=== PATIENT | female | born 1970 | race Caucasian/White ===

== ENCOUNTER 2020-12-08 20:30 | Inpatient (IN) | payer MEDICAID ==
[~2020-12-08] VITALS: Ht 162.6 cm; Wt 63.3 kg
[2020-12-09] MEDS ORDERED: HALOPERIDOL 5 MG TABLET PO PRN (01:15)
[2020-12-09 03:00] VITALS: BP 108/74
[2020-12-09] MEDS: ZOLPIDEM TARTRATE 10 MG TABLET PO PRN ×2 (03:00→20:00)
[2020-12-09] MEDS ORDERED: CloNIDine HCL 0.1 MG TABLET PO PRN (07:45)
[2020-12-09] MEDS ORDERED: LOPERAMIDE HCL 2 MG CAPSULE PO PRN (07:45)
[2020-12-09] MEDS ORDERED: MAG HYDROX/AL HYDROX/SIMETH ES 30 ML SUSPENSION UDCUP PO PRN (07:45)
[2020-12-09] MEDS ORDERED: ACETAMINOPHEN 325 MG TABLET PO PRN (07:45)
[2020-12-09] MEDS ORDERED: NICOTINE 14 MG/24 HOUR PATCH TD PRN (07:45)
[2020-12-09] MEDS ORDERED: IBUPROFEN 400 MG TABLET PO PRN (07:45)
[2020-12-09] MEDS ORDERED: DOCUSATE SODIUM 100 MG CAPSULE PO PRN (07:45)
[2020-12-09] MEDS ORDERED: ALBUTEROL SULFATE HFA 90 MCG/PUFF 8 GM INHALER IH PRN (07:45)
[2020-12-09] MEDS ORDERED: GuaiFENesin/D-METHORPHAN [SUGAR-FREE] 200-20MG/10 ML SYRUP UDCUP PO PRN (07:45)
[2020-12-09] MEDS ORDERED: PETROLATUM,WHITE 28 GM JELLY TP PRN (07:45)
[2020-12-09] MEDS ORDERED: ONDANSETRON HCL 4 MG TABLET PO PRN (07:45)
[2020-12-09] MEDS ORDERED: MAGNESIUM HYDROXIDE SUSPENSION 30 ML UDCUP PO PRN (07:45)
[2020-12-09 08:15] VITALS: BP 100/61
[2020-12-09] MEDS: LORazepam 1 MG TABLET PO PRN (10:52)
[2020-12-09] MEDS: BuPROPion HCL XL 150 MG ER TABLET PO SCH (11:35)
[2020-12-09 16:10] VITALS: BP 117/61
[2020-12-10 05:08] VITALS: BP 110/72
[2020-12-10 08:12] VITALS: BP 100/60
[2020-12-10] MEDS: BuPROPion HCL XL 150 MG ER TABLET PO SCH (08:39)
[2020-12-10] MEDS: MULTIVITAMINS WITH MINERALS, THERAPEUTIC TABLET PO SCH (08:51)
[2020-12-10 09:00] VITALS: BP 110/80
[2020-12-10] MEDS: LORazepam 1 MG TABLET PO PRN ×2 (10:18→20:42)
[2020-12-10 16:20] VITALS: BP 100/65
[2020-12-10] MEDS: ZOLPIDEM TARTRATE 10 MG TABLET PO PRN (20:42)
[2020-12-11 04:18] VITALS: BP 112/74
[2020-12-11] MEDS: BuPROPion HCL XL 150 MG ER TABLET PO SCH (08:05)
[2020-12-11] MEDS: MULTIVITAMINS WITH MINERALS, THERAPEUTIC TABLET PO SCH (08:05)
[2020-12-11 08:17] VITALS: BP 109/62
[2020-12-11 10:10] LABS: BASOPHILS % (AUTO) 0.7 % (0.0-2.0); EOSINOPHILS % (AUTO) 2.9 % (1.0-6.0); HEMATOCRIT 37.9 % (36-46); HEMOGLOBIN 12.6 g/dL (12.0-16.0); LYMPHOCYTES # (AUTO) 1.2 K/uL (1.0-4.8); LYMPHOCYTES % (AUTO) 18.2 % (22.0-44.0); MEAN CORPUSCULAR HEMOGLOBIN 30.3 pg (26.0-34.0); MEAN CORPUSCULAR HGB CONC 33.3 G/dL (31.0-37.0); MEAN CORPUSCULAR VOLUME 91 fL (80-100); MONOCYTES # (AUTO) 0.5 K/uL (0.1-1.0); NEUTROPHILS # (AUTO) 4.8 K/uL (1.8-7.7); NEUTROPHILS % (AUTO) 70.2 % (40.0-70.0); PLATELET COUNT (AUTO) 420 K/uL (150-450); RED BLOOD CELL COUNT(AUTO) 4.17 MIL/uL (4.00-5.20); RED CELL DISTRIBUTION WIDTH 13.7 % (11.5-14.5)
[2020-12-11 10:34] LABS: ALBUMIN 3.7 g/dL (3.4-5.0); BILIRUBIN,TOTAL 0.4 mg/dL (0.1-1.0); CALCIUM, TOTAL 8.9 mg/dL (8.8-10.5); CREATININE 1.1 mg/dL (0.60-1.30); FREE T4 (FREE THYROXINE) 1.07 ng/dL (0.76-1.46); POTASSIUM 3.5 mmol/L (3.5-5.1); THYROID STIMULATING HORMONE 1.03 uIU/mL (0.36-3.74); TOTAL PROTEIN, SERUM 8.1 g/dL (6.4-8.2)
[2020-12-11 16:13] VITALS: BP 105/66
[2020-12-11] MEDS: ZOLPIDEM TARTRATE 10 MG TABLET PO PRN (19:34)
[2020-12-11] MEDS: LORazepam 1 MG TABLET PO PRN (19:34)
[2020-12-12] MEDS: LORazepam 1 MG TABLET PO PRN ×2 (03:43→08:19)
[2020-12-12 04:32] VITALS: BP 112/71
[2020-12-12 08:09] VITALS: BP 112/79
[2020-12-12] MEDS: BuPROPion HCL XL 150 MG ER TABLET PO SCH (08:10)
[2020-12-12] MEDS: MULTIVITAMINS WITH MINERALS, THERAPEUTIC TABLET PO SCH (08:10)
[2020-12-12] MEDS ORDERED: BUPR75 PO (10:06)
== END 2020-12-12 12:40 | disposition home or self-care (01) | DRG 754 ==
LOC: B3A 12-09 01:00
PROVIDERS: ADMIT Psychiatry & Neurology Psychiatry; ATTEND Psychiatry & Neurology Psychiatry
DX: F32.9 Major depressive disorder, single episode, unspecified (principal); K59.00 Constipation, unspecified; F10.10 Alcohol abuse, uncomplicated; F43.10 Post-traumatic stress disorder, unspecified; Z87.891 Personal history of nicotine dependence; Z91.410 Personal history of adult physical and sexual abuse
CPT/HCPCS: 83036; 84439; 84443